=== PATIENT | male | born 1940 | race Caucasian/White ===

== ENCOUNTER 2023-06-30 10:34 | Inpatient (IN) | payer MEDICARE, OTHER, SELFPAY ==
[2023-06-21 08:26] VITALS: BMI 28.5
[2023-06-21 09:19] LABS: % Basophils 0.4 % (0-2); % Eosinophils 1.2 % (0-6); % Immature Granulocytes 0.5 % (0-0.5); % Lymphocytes 22.8 % (20.5-51.1); % Monocytes 9.9 % (1.7-9.3); % Neutrophils 65.2 % (42.2-75.2); Absolute Eosinophils 0.1 10^3/uL (0-0.7); Absolute Lymphocytes 1.9 10^3/uL (1.2-3.4); Absolute Monocytes 0.8 10^3/uL (0.1-0.6); Absolute Neutrophils 5.5 10^3/uL (1.4-6.5); Hematocrit 34.7 % (39.0-52.0); Hemoglobin 11.9 g/dL (13.0-18.0); Mean Corp Hgb Conc. 34.3 g/dL (33.0-37.0); Mean Corpuscular Volume 93.3 fL (80.0-94.0); Mean Platelet Volume 12.1 fL (7.4-10.4); Nucleated Red Blood Cells % 0 % (-); Platelet Count 238 10^3/uL (130-400); Red Blood Cell Count 3.72 10^6/uL (4.70-6.10); Red Cell Dist. Width 14.6 % (11.5-14.5); White Blood Cell Count 8.4 10^3/uL (4.8-10.8)
[2023-06-21 09:34] LABS: INR 0.97; PT 13.1 Sec (11.4-14.6)
[2023-06-21 09:34] LABS: Urine Albumin Negative (Neg - Trace); Urine Bilirubin Negative (Negative); Urine Character Clear (Clear); Urine Color Yellow; Urine Glucose Negative (Negative); Urine Ketone Negative (Negative); Urine Leukocyte Negative (Negative); Urine Nitrite Negative (Negative); Urine Occult Blood Negative (Negative); Urine Specific Gravity 1.015 (<1.030); Urine Urobilinogen Negative (Neg - 1+)
[2023-06-21 09:35] LABS: APTT 36.3 Sec (23.4-35.0)
[2023-06-21 09:59] LABS: ALT (SGPT) 22 U/L (0-50); AST (SGOT) 22 U/L (17-59); Albumin 4.2 g/dl (3.5-5.0); Alkaline Phosphatase 51 U/L (38-126); Blood Urea Nitrogen 26 mg/dl (9-20); Calcium 9.6 mg/dl (8.4-10.2); Carbon Dioxide 20 mmol/L (22-30); Chloride 108 mmol/L (98-107); Direct Bilirubin 0.3 mg/dl (0.0-0.4); Estimated Creatinine Clearance 43 ml/min; Glomerular Filtration Rate 52.7; Glucose 99 mg/dl (70-99); Potassium 4.7 mmol/L (3.5-5.1); Sodium 139 mmol/L (135-145); Total Bilirubin 0.5 mg/dl (0.2-1.3); Total Protein 7.3 g/dl (6.3-8.2)
[2023-06-21 10:07] LABS: NT-proBNP 234 pg/ml
--- NOTE | 2023-06-21 11:13 | CM ---
Chart reviewed. Met with the patient, and son in PAT. Patient is independent of ADLS, lives with his in a 2 story condo, 0 [address]IE[address], ambulates occasional with a SPC. Patient uses [employer] [facility] 7x a week/ 8 hours a day. Reviewed
preoperative and postoperative instructions along with showering guidelines. Gave patient 2 soaps. Patient is outside of driving radius for CT Transitional RN and will need a VN. Plan is for the patient to return home with VN.
[2023-06-21 12:01] LABS: Glycohemoglobin (HgbA1c) 8.4 % (4.0-5.6)
[2023-06-30] VITALS (17 sets, daily range): BP systolic 90–146; BP diastolic 56–88; BMI 25.4
[2023-06-30 11:01] LABS: Glucose - Point of Care 113 mg/dl (70-99)
[2023-06-30] MEDS: STERILE WATER FOR INJECTION 16 ML IV (12:45)
[2023-06-30] MEDS: ZINACEF 1500 MG IV (12:45)
[2023-06-30 13:45] LABS: ACT-LR - POC 343 Seconds (116-155)
--- NOTE | 2023-06-30 14:11 | W.CVOR.SURPR ---
CVOR Surgeon Immed Pre Op
-
I have examined this patient prior to performance of the scheduled procedure.
The patient's condition is unchanged from the time of the dictated/written History and
Physical and the patient is able to undergo the scheduled procedure.
--- NOTE | 2023-06-30 14:11 | W.IMMPOSTOP ---
Surgical Immed Post Op Note
-
Dictated: [id number]
STRUCTURAL HEART PROCEDURE NOTE:
Preoperative Dx:
Severe aortic stenosis (P/M: 69/43mmHg, DOMINIQUE 0.7)
T2DM
HTN/HLD
Postoperative Dx:
Same
Procedures:
1) L CFV access w/ flouroscopic guidance, micropuncture technique, 7Fr sheath placement
2) L METAL ROASTER access w/ tactile & fluoroscopic guidance, micropuncture technique, 6Fr sheath placement, limited angiography
3) Placement of temporary RV pacing wire, threshold testing
4) Placement of pigtail catheter in NCC w/ limited aortography & confirmation of cusp-overlap view
5) R METAL ROASTER access w/ tactile & fluoroscopic guidance, micropuncture technique, 6Fr sheath placement, limited angiography
6) Placement of perclose sutures x 2 into R METAL ROASTER, 8Fr sheath placement (partial heparinization)
7) Serial dilation of R ileofemoral system w/ placement of 14Fr COOK sheath (full heparinization)
8) Wire purchase across stenotic AV (AL-1, soft-tip straight, LV HD assessment, table-J, pigtail, lunderquist)
9) Fluoroscopic inspection of TAVR valve
10) R TF TAVR w/ placement of 29mm Evolut FX valve
12) Completion aortography
13) Completion TTE
14) Removal of valve delivery system/in-line sheath w/ R METAL ROASTER mgmt w/ perclose sutures x 2 & manual pressure
15) Completion R ileofemoral angiography
16) Removal of temporary pacing wire
17) Removal of L METAL ROASTER sheath w/ mgmt w/ 6Fr angioseal x 1, manual pressure
18) Removal of L CFV sheath w/ manual hold
Cardiac Surgeon:
Greg Krueger M.D.
Fern Gatherer:
Deion Cummins M.D.
Anesthesia:
MAC & local to B/L groins
Implants:
Medtronic Evolut FX 29mm, SN [id number]
Perclose x 2
6Fr angioseal x 1
Complications:
None
Cath Data:
Start: 1317hrs, Deploy: 1348hrs, End: 1404hrs
FT: 7.4min, mGy: 385.24, DAP: 48.7498, Contrast: 104
Post-TTE: No AI, mean gradient 5mmHg
Condition:
Stable/guarded to recovery
--- NOTE | 2023-06-30 14:19 | ITS.CL.TAVR ---
[employer] - TAVR Report
TAVR PRocedure
Procedure Report:
TRANSCATHETER AORTIC VALVE REPLACEMENT REPORT
Date: 06/30/2023
Referring physician: Ozzie Wolf MD
Operators: Live Cummins MD, Greg Krueger MD
Procedure: Conscious sedation was provided by anesthesia. Using a micropuncture technique, 6F LFV and LFA sheaths were placed. Injection into the LFA sheath was performed to confirm a common femoral artery puncture site. A transvenous pacemaker was
placed into the RV apex with excellent thresholds. A pigtail catheter was advanced to the aortic root and low-volume injections performed to identify a cusp overlap angle for valve deployment. Access was then obtained in the RFA using the
micropuncture technique. Injection into the RFA sheath was performed to confirm a common femoral artery puncture site. Heparin 4000 units was administered. At this point, two Perclose sutures were preset using the preclose technique. We then placed
an 8 Armenian sheath. After dilating with a 12 Armenian dilator, a 14 Armenian Cook sheath was exchanged into the RFA.Heparin 3000 units was administered. The valve was crossed with an AL 1 diagnostic catheter and a straight wire. A double curved
Lunderquist wire was advanced into the LV apex. The 14 F sheath was removed and exchanged for a 29 mm Medtronic Evolute pro valve with in-line sheath. The valve was carefully advanced around the aortic arch and across the valve. Once ideal valve
positioning was confirmed, the valve was very slowly deployed with ventricular pacing at 110-120 per minute. The result was evaluated with both aortography and echocardiography which demonstrated an excellent result. Mean gradient was 5 mmHg with
no AI. The valve deployment system was removed and the arteriotomy closed with the 2 Perclose sutures. Angiography of the right iliofemoral system was accomplished and showed no evidence of significant dissection or perforation with good runoff
below the femoral bifurcation. The LFA sheath was removed with a 6 Armenian Angio-Seal. The pacemaker was removed and the LFV sheath removed with manual compression.
Radiation
Dose (mGy): 385
DAP (cm2.Gy): 48.7
Fluoroscopy time: 7.4 minutes
Conclusion: Successful placement of 29 mm CoreValve Evolute Pro using a right percutaneous transfemoral approach with no acute complications
Live Cummins M.D.
Copy : Ozzie Wolf MD, Galdino Victor MD
[2023-06-30 15:02] LABS: Glucose - Point of Care 111 mg/dl (70-99)
--- NOTE | 2023-06-30 15:42 | CM ---
Reviewed chart. Mr. Huerta is in the operating room today. Prior to admission he resides in a two story home without any steps to enter. Prior to admission he ambulates with a single point cane. He has [employer] [facility] seven x a week for
eight hours a day. Medical work-up in progress. The discharge plan is to return home with his spouse and [facility] when medically stable.
[2023-06-30 17:43] LABS: Glucose - Point of Care 86 mg/dl (70-99)
[2023-06-30] MEDS: AMARYL 1 MG PO (17:44)
[2023-06-30] MEDS: NOVOLOG FLEXPEN-MODERATE RESISTANCE SC (17:45)
--- NOTE | 2023-06-30 18:11 | PTCARENOTE ---
Received patient to IVU at 1530, oriented to room and call barajas, patient states understanding to call with needs or complains. Son and at bedside. Bilateral groins with dressings clean, dry & intact.
--- NOTE | 2023-06-30 20:00 | PTCARENOTE ---
Assumed care. Patient unable to void. Bladder scan >800, straight cath patient for 1000 ml of pale yellow urine. B/L groin sites are dry. VSS, NSR, call barajas in reach
[2023-06-30] MEDS: LOPRESSOR 50 MG PO (20:19)
[2023-06-30] MEDS: STERILE WATER FOR INJECTION 8.30000000000000071 ML IV (20:20)
[2023-06-30] MEDS: TIMOPTIC 0.5% OPHTHALMIC SOLUTION 1 DROP BOTH EYES (20:20)
[2023-06-30] MEDS: ZINACEF 750 MG IV (20:20)
[2023-06-30] MEDS: COLACE 100 MG PO (20:20)
[2023-06-30 22:12] LABS: Glucose - Point of Care 158 mg/dl (70-99)
[2023-06-30] MEDS: RESTASIS 0.05% OPHTHALMIC EMULSION 1 DROPS BOTH EYES (22:24)
[2023-06-30] MEDS: CRESTOR 10 MG PO (22:25)
[2023-06-30] MEDS: ZYLOPRIM 300 MG PO (22:25)
--- NOTE | 2023-07-01 01:41 | PTCARENOTE ---
Patient having trouble urinating, urinal emptied for 75 cc of pale yellow urine, order received for Flomax stat
[2023-07-01] MEDS: FLOMAX 0.400000000000000022 MG PO (01:52)
[2023-07-01 03:13] VITALS: BP 133/65
[2023-07-01 03:51] LABS: Hematocrit 30.9 % (39.0-52.0); Mean Corp Hgb Conc. 35.6 g/dL (33.0-37.0); Mean Corpuscular Hgb 32.8 pg (27.0-31.0); Mean Corpuscular Volume 92.2 fL (80.0-94.0); Mean Platelet Volume 12.1 fL (7.4-10.4); Platelet Count 204 10^3/uL (130-400); Red Blood Cell Count 3.35 10^6/uL (4.70-6.10); Red Cell Dist. Width 14.6 % (11.5-14.5); White Blood Cell Count 11.7 10^3/uL (4.8-10.8)
[2023-07-01 04:13] LABS: Blood Urea Nitrogen 24 mg/dl (9-20); Calcium 8.9 mg/dl (8.4-10.2); Carbon Dioxide 20 mmol/L (22-30); Chloride 105 mmol/L (98-107); Estimated Creatinine Clearance 56 ml/min; Glomerular Filtration Rate > 60.0; Glucose 74 mg/dl (70-99); Potassium 4.6 mmol/L (3.5-5.1); Sodium 134 mmol/L (135-145)
--- NOTE | 2023-07-01 05:54 | W.PN.CT ---
Addendum entered and electronically signed by Greg Krueger MD 07/01/23 08:29:
I saw and examined the patient.
The PA's note was reviewed and I agree with the note.
Comment:
POD#1 s/p R TF TAVR (29 Mode)
No events w/ exception of requiring straight cath, small void this AM (336 on bladder scan). Tm 99.1. 85 sinus. 125/60. 98% RA. No gtts. Groins OK. UO: as noted. Tolerating PO. Neuro: intact. 11.7>11.0<204; 24.1. CXR: clear.
- Check echocardiogram today
- Follow PVRs post void, continue flomax
- Resume home medication
- ASA only anticoagulation
- Hopefully home later today
Original Note:
Today's Communication / Plan
-
-pod #1
-urinary retention postop - straight cath 1000 last night
-nsr overnight. No сергей or pauses. 4 beat AIVR
-new 1st degree AVB postop- improved
-Echo
-current meds (ASA, Lasix, Lopressor 50 bid, Crestor)
-encourage IS, OOB
-possible d/c
Assessment / Plan
-
- Severe symptomatic - s/p R TF TAVR w/ placement of 29mm Evolut FX valve on 06/30/23, pod #1
- Post-TTE: No AI, mean gradient 5mmHg
- HTN/HLD
- DM II (HgA1c 8.4)
- COPD
- Former smoker
- BPH
- OA
- Hypothyroidism
- s/p teeth extraction
- Acute postop urinary retention - straight cathed for 1000 cc on 06/30, gave Flomax
Discussed patient care with: Nursing and Care Team
Subjective
Procedure
- s/p R TF TAVR w/ placement of 29mm Evolut FX valve on 06/30/23
-
Date of Service: July 01, 2023
Objective Data
-
PT 13.1 Sec (11.4-14.6) 06/21/23 08:44
INR 0.97 06/21/23 08:44
APTT 36.3 Sec (23.4-35.0) H 06/21/23 08:44
Vital Signs
Vital Signs
Temp Pulse Resp BP Pulse Ox
99.1 F 89 17 125/60 98
06/30/23 23:10 06/30/23 23:30 06/30/23 23:10 06/30/23 22:54 06/30/23 23:10
CT Intake/Output/Weight
06/30/23 06/30/23 07/01/23
06:59 18:59 06:59
Intake Total 420 / 780 360 / 780
Output Total 200 / 1200 1000 / 1200
Balance 220 / -420 -640 / -420
SaO2: 98
Physical Exam
-
General: Awake and AOx3
Cardiovascular: Regular rate & rhythm, No Murmurs and No Rub
Respiratory: Clear and Decreased Breath Sounds
Incision: Other (groins are cdi, soft, nontender, no hematoma b/l)
Extremities: Other (trace edema b/l. )
Data Reviewed
-
Lab Results: Results Reviewed
Medications: Active Meds Reviewed
Chest X-Ray: Report Reviewed and Image Reviewed
ECG: Report Reviewed and Image Reviewed
[2023-07-01] MEDS: SYNTHROID 50 MCG PO (05:55)
[2023-07-01 06:00] VITALS: BMI 25.7
--- NOTE | 2023-07-01 06:00 | PTCARENOTE ---
Patient voided large amount of urine in the toilet, forgot to use the urinal. PVR 447. CXR completed. Call barajas in reach
[2023-07-01 07:05] LABS: Glucose - Point of Care 113 mg/dl (70-99)
[2023-07-01 07:29] VITALS: BP 123/58
--- NOTE | 2023-07-01 08:37 | W.PN.ANS.POP ---
Anesthesia Post Operative
- Anesthesia Post Op Note
Vital Signs Stable-See Nursing Note: Yes
Airway Patent: Yes
Adequate Pain Control: Yes
Change in Mental Status: No
Current Postoperative Nausea & Vomiting: No
Anesthesia Complications: No
General Anesthetic Recall: No
Unplanned Admission: No
Post Op Hydration Adequate: Yes
[2023-07-01] MEDS: NOVOLOG FLEXPEN-MODERATE RESISTANCE SC (09:09)
[2023-07-01] MEDS: AMARYL 1 MG PO (09:15)
[2023-07-01] MEDS: COLACE 100 MG PO (09:15)
[2023-07-01] MEDS: LOPRESSOR 50 MG PO (09:15)
[2023-07-01] MEDS: LASIX 40 MG PO (09:15)
[2023-07-01] MEDS: RESTASIS 0.05% OPHTHALMIC EMULSION 1 DROPS BOTH EYES (09:15)
[2023-07-01] MEDS: LOW STRENGTH ASPIRIN 81 MG PO (09:15)
--- NOTE | 2023-07-01 11:11 | CM ---
Reviewed chart. Met with and Mrs. Lugo to review discharge plans. Reviewed [facility]NA Services with them. They have selected [facility]. Telephone call to [facility] to make the referral. Sent referral to [facility]. Prior to admission Mr. Huerta resides with spouse in a two story condo without any steps to enter. Prior to admission he ambulates with a single point cane and independent with adls. Medical work-up in progress. The discharge plan is
to return home with spouse and [facility] when medically stable.
[2023-07-01 11:46] VITALS: BP 131/62
[2023-07-01 11:53] LABS: Glucose - Point of Care 221 mg/dl (70-99)
[2023-07-01] MEDS: TIMOPTIC 0.5% OPHTHALMIC SOLUTION 1 DROP BOTH EYES (12:41)
[2023-07-01] MEDS: NOVOLOG FLEXPEN-MODERATE RESISTANCE 3 UNITS SC (12:41)
--- NOTE | 2023-07-01 14:05 | W.DS.TRANS ---
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
-
Discharge Instructions:
Discharge Diagnosis/Procedures TF-TAVR
Diet Low Fat,2 Gram Sodium
Activity As tolerated
Driving Restrictions No driving for 1 week
Bathing Restrictions OK to Shower
Others Tests Please make an appointment with your
third miller for an echocardiogram in one month.
Other Services Cardiac Rehab
Wound Care No lotions, creams, or powders to puncture sites
Specialty Instructions Weigh Daily
Instructions:
Stand-Alone Forms:
Changes to Home Medications: Yes
Discharge Medications:
DC Medications w/original date entered in [employer]
allopurinol 300 mg tablet 300 mg PO HS 05/03/23
aspirin 81 mg capsule 81 mg PO DAILY #0 caps 05/03/23
cyclosporine 0.05 % eye drops 1 drp BOTH EYES Q12H 05/03/23
docusate sodium 100 mg capsule 100 mg PO BID 05/03/23
dulaglutide 0.75 mg/0.5 mL subcutaneous pen injector (Trulicity) 0.75 mg SC FR 05/03/23
finerenone 10 mg tablet (Kerendia) 10 mg PO DAILY 05/03/23
furosemide 40 mg tablet 40 mg PO DAILY 05/03/23
levothyroxine 50 mcg tablet (Synthroid) 50 mcg PO DAILY 05/03/23
metformin 500 mg tablet 500 mg PO BID 05/03/23
metoprolol tartrate 50 mg tablet 50 mg PO BID 05/03/23
rosuvastatin 10 mg tablet 10 mg PO HS 05/03/23
timolol 0.5 % eye drops 1 drp BOTH EYES BID 05/03/23
albuterol sulfate 90 mcg/actuation aerosol inhaler 2 puff inhalation PRN PRN SOB 06/20/23
glimepiride 1 mg tablet 1 mg PO BID 06/20/23
nitroglycerin 0.4 mg sublingual tablet 0.4 mg sublingual Q5M PRN chest Pain 06/20/23
acetaminophen 325 mg tablet 650 mg PO Q6HPRN PRN TUTTLE, mild pain, or fever >101F #0 tabs 07/01/23
tamsulosin 0.4 mg capsule (Flomax) 0.4 mg PO HS Urinary issue #30 caps 07/01/23
Home Medication Changes
New:
flomax 0.4mg HS for urinary retention
Pending Results: No
[2023-07-01 14:34] LABS: ACT-LR - POC > 397 Seconds (116-155)
--- NOTE | 2023-07-01 15:16 | PTCARENOTE ---
Patient, and son present for discharge instructions. Sindy Blakely PAc also present. All questions answered. INT and monitor removed. Escorted to car in wheelchair.
== END 2023-07-01 15:29 | disposition home health service (06) | DRG 267 ==
LOC: IVU 10:34
PROVIDERS: Physician Assistant Medical; ADMITTING PHYSICIAN Thoracic Surgery (Cardiothoracic Vascular Surgery); FAMILY PHYSICIAN Internal Medicine
PROC: 02RF38Z Replacement of Aortic Valve with Zooplastic Tissue, Percutaneous Approach (ICD-10-PCS; 2023-06-30)
DX: I35.0 Nonrheumatic aortic (valve) stenosis (principal); Z00.6 Encounter for examination for normal comparison and control in clinical research program; E11.9 Type 2 diabetes mellitus without complications; E03.9 Hypothyroidism, unspecified; E78.5 Hyperlipidemia, unspecified; I10 Essential (primary) hypertension; J44.9 Chronic obstructive pulmonary disease, unspecified; M19.90 Unspecified osteoarthritis, unspecified site; N40.1 Benign prostatic hyperplasia with lower urinary tract symptoms; R33.8 Other retention of urine; I25.10 Atherosclerotic heart disease of native coronary artery without angina pectoris; I25.2 Old myocardial infarction; Z79.82 Long term (current) use of aspirin; Z79.84 Long term (current) use of oral hypoglycemic drugs; Z79.899 Other long term (current) drug therapy; Z87.891 Personal history of nicotine dependence
CPT/HCPCS: 93308; 33361; 36415; 71045; 71046; 80048; 80053; 81003; 82248; 82962; 83036; 83880; 85025; 85027; 85347; 85610; 85730; 86850; 86900; 86901; 87070; 93005; 93306; 93321; 93325; C1760; C1769; C1894; Q9967